=== PATIENT | male | born 1950 | race Caucasian/White ===

== ENCOUNTER 2019-02-25 19:17 | Inpatient (IN) | payer OTHER ==
[~2019-02-25] VITALS: Ht 180.3 cm; Wt 70.3 kg
[2019-02-25 20:57] VITALS: BP_SYST 129
[2019-02-25] MEDS: MORPHINE 2 MG/ML INJ. SYRINGE IVP PRN (21:59)
[2019-02-25] MEDS ORDERED: LEVOFLOXACIN 500 MG/D5W 100 ML IV SCH ×2 (22:45→23:30)
[2019-02-25] MEDS ORDERED: ACETAMINOPHEN 325 MG TABLET PO PRN (22:45)
[2019-02-25] MEDS: D5NS 1,000 ML IV SCH (23:08)
[2019-02-25] MEDS ORDERED: LEVOFLOXACIN 500 MG/D5W 100 ML IV ONE (23:19)
[2019-02-26 00:17] VITALS: BP_SYST 114
[2019-02-26] MEDS: HYDROmorphone 1 MG INJ. 1 MG/ML AMPUL IM PRN (01:16)
[2019-02-26] MEDS: PANTOPRAZOLE SODIUM 40 MG TAB PO SCH (05:53)
[2019-02-26] MEDS: MORPHINE 2 MG/ML INJ. SYRINGE IVP PRN ×6 (05:54→23:34)
[2019-02-26 06:41] LABS: HEMATOCRIT 37.1 % (36-54); LYMPHOCYTES # (AUTO) 0.7 K/uL (1.0-5.5); LYMPHOCYTES % (AUTO) 2.1 % (20.5-51.5); MEAN CORPUSCULAR HEMOGLOBIN 28 pg (27-31); MEAN CORPUSCULAR HGB CONC 32 % (32-36); MEAN CORPUSCULAR VOLUME 88 fL (79.0-98.0); MONOCYTES # (AUTO) 1.4 K/uL (0.0-1.0); MONOCYTES % (AUTO) 4.1 % (1.7-9.3); NEUTROPHILS # (AUTO) 31.9 K/uL (1.8-7.7); PLATELET COUNT (AUTO) 423 K/uL (130-430); RED BLOOD CELL COUNT(AUTO) 4.23 MIL/uL (4.2-6.2)
[2019-02-26 07:06] LABS: ALBUMIN 1.5 g/dL (3.4-4.8); CALCIUM 10.6 mg/dL (8.4-11.0); CREATININE 2.58 mg/dL (0.55-1.30); TOTAL BILIRUBIN 0.4 mg/dL (0.0-1.0)
[2019-02-26 08:00] VITALS: BP_SYST 112
[2019-02-26] MEDS ORDERED: PIPERACILLIN/TAZO 2.25G/DEX-IS 50 ML IV ONE (08:10)
[2019-02-26] MEDS ORDERED: DIATR MEGLU/DIATRIZ SOD 30 ML SOLUTION PO ONE (08:14)
[2019-02-26 08:35] LABS: NEUTROPHILS % (AUTO) 93.8 % (40.0-70.0)
[2019-02-26 11:21] VITALS: BP_SYST 102
[2019-02-26 12:02] VITALS: BP_SYST 108
[2019-02-26] MEDS: PIPERACILLIN/TAZO 2.25G/DEX-IS 50 ML IV SCH ×3 (13:28→23:38)
[2019-02-26] MEDS: D5NS 1,000 ML IV SCH (13:49)
[2019-02-26 15:44] VITALS: BP_SYST 116
[2019-02-26] MEDS: LEVOFLOXACIN 250 MG/D5W 50 ML IV SCH (20:28)
[2019-02-27 00:25] VITALS: BP_SYST 108
[2019-02-27] MEDS: MORPHINE 2 MG/ML INJ. SYRINGE IVP PRN ×4 (03:08→17:23)
[2019-02-27] MEDS: D5NS 1,000 ML IV SCH ×2 (03:11→17:24)
[2019-02-27] MEDS: PIPERACILLIN/TAZO 2.25G/DEX-IS 50 ML IV SCH ×4 (06:07→23:18)
[2019-02-27] MEDS: PANTOPRAZOLE SODIUM 40 MG TAB PO SCH (06:07)
[2019-02-27 06:31] LABS: HEMATOCRIT 31.6 % (36-54); HEMOGLOBIN 10.3 g/dL (14.0-18.0); MEAN CORPUSCULAR HEMOGLOBIN 28 pg (27-31); MEAN CORPUSCULAR HGB CONC 33 % (32-36); MEAN CORPUSCULAR VOLUME 87 fL (79.0-98.0); PLATELET COUNT (AUTO) 382 K/uL (130-430); RED BLOOD CELL COUNT(AUTO) 3.65 MIL/uL (4.2-6.2); RED CELL DISTRIBUTION WIDTH 14.7 % (9.0-15.0)
[2019-02-27 06:45] LABS: CALCIUM 9.7 mg/dL (8.4-11.0); CREATININE 1.75 mg/dL (0.55-1.30); POTASSIUM 3.8 mmol/L (3.5-5.1)
[2019-02-27 06:59] LABS: ALBUMIN 1.4 g/dL (3.4-4.8); TOTAL BILIRUBIN 0.3 mg/dL (0.0-1.0)
[2019-02-27 07:10] LABS: WHITE BLOOD COUNT (AUTO) 30.6 K/uL (4.8-10.8)
[2019-02-27 07:26] LABS: BASOPHILS % (MANUAL) 0 % (0-2); EOSINOPHILS % (MANUAL) 0 % (0-7); LYMPHOCYTES % (MANUAL) 1 % (20-46); MONOCYTES % (MANUAL) 1 % (0-11)
[2019-02-27 07:50] VITALS: BP_SYST 109
[2019-02-27] MEDS: HYDROmorphone 1 MG INJ. 1 MG/ML AMPUL IM PRN ×2 (12:18→21:38)
[2019-02-27 12:43] VITALS: BP_SYST 119
[2019-02-27 16:49] VITALS: BP_SYST 113
[2019-02-27 20:25] VITALS: BP_SYST 114
[2019-02-27] MEDS: LEVOFLOXACIN 250 MG/D5W 50 ML IV SCH (21:38)
[2019-02-28 01:51] VITALS: BP_SYST 119
[2019-02-28] MEDS: D5NS 1,000 ML IV SCH ×2 (04:24→16:33)
[2019-02-28] MEDS: HYDROmorphone 1 MG INJ. 1 MG/ML AMPUL IM PRN ×3 (04:25→10:29)
[2019-02-28] MEDS: PANTOPRAZOLE SODIUM 40 MG TAB PO SCH (07:09)
[2019-02-28] MEDS: PIPERACILLIN/TAZO 2.25G/DEX-IS 50 ML IV SCH ×4 (07:09→23:17)
[2019-02-28 08:25] VITALS: BP_SYST 113
[2019-02-28 09:06] LABS: BASOPHILS % (AUTO) 0.1 % (0.0-2.0); LYMPHOCYTES # (AUTO) 0.6 K/uL (1.0-5.5); MEAN CORPUSCULAR HEMOGLOBIN 28 pg (27-31); MEAN CORPUSCULAR HGB CONC 32 % (32-36); MEAN CORPUSCULAR VOLUME 87 fL (79.0-98.0); MONOCYTES # (AUTO) 1.2 K/uL (0.0-1.0); MONOCYTES % (AUTO) 3.7 % (1.7-9.3); NEUTROPHILS # (AUTO) 31.2 K/uL (1.8-7.7); PLATELET COUNT (AUTO) 409 K/uL (130-430); RED BLOOD CELL COUNT(AUTO) 3.89 MIL/uL (4.2-6.2); RED CELL DISTRIBUTION WIDTH 14.9 % (9.0-15.0)
[2019-02-28 09:10] LABS: WHITE BLOOD COUNT (AUTO) 33.1 K/uL (4.8-10.8)
[2019-02-28 09:27] LABS: CALCIUM 10.6 mg/dL (8.4-11.0); CREATININE 1.61 mg/dL (0.55-1.30); POTASSIUM 3.6 mmol/L (3.5-5.1)
[2019-02-28 09:33] LABS: ALBUMIN 1.4 g/dL (3.4-4.8); TOTAL BILIRUBIN 0.3 mg/dL (0.0-1.0)
[2019-02-28 09:47] LABS: NEUTROPHILS % (AUTO) 94.2 % (40.0-70.0)
[2019-02-28 12:00] VITALS: BP_SYST 121
[2019-02-28] MEDS: FLUCONAZOLE 200 mg/ NS 100 ML IV SCH (13:31)
[2019-02-28] MEDS: MORPHINE 2 MG/ML INJ. SYRINGE IVP PRN ×4 (13:32→23:16)
[2019-02-28 16:03] VITALS: BP_SYST 119
[2019-02-28 20:00] VITALS: BP_SYST 115
[2019-02-28] MEDS: LEVOFLOXACIN 250 MG/D5W 50 ML IV SCH (20:11)
[2019-03-01 00:31] VITALS: BP_SYST 141
[2019-03-01] MEDS: MORPHINE 2 MG/ML INJ. SYRINGE IVP PRN ×2 (02:17→06:16)
[2019-03-01] MEDS: PIPERACILLIN/TAZO 2.25G/DEX-IS 50 ML IV SCH ×4 (05:20→23:06)
[2019-03-01] MEDS: PANTOPRAZOLE SODIUM 40 MG TAB PO SCH (06:17)
[2019-03-01 06:31] LABS: BASOPHILS # (AUTO) 0.4 K/uL (0.0-0.2); BASOPHILS % (AUTO) 1.2 % (0.0-2.0); EOSINOPHILS # (AUTO) 0.1 K/uL (0.0-0.4); EOSINOPHILS % (AUTO) 0.2 % (0.0-4.0); HEMATOCRIT 35.7 % (36-54); HEMOGLOBIN 11.6 g/dL (14.0-18.0); LYMPHOCYTES # (AUTO) 0.8 K/uL (1.0-5.5); LYMPHOCYTES % (AUTO) 2.4 % (20.5-51.5); MEAN CORPUSCULAR HEMOGLOBIN 28 pg (27-31); MEAN CORPUSCULAR HGB CONC 33 % (32-36); MEAN CORPUSCULAR VOLUME 87 fL (79.0-98.0); MONOCYTES # (AUTO) 1.4 K/uL (0.0-1.0); MONOCYTES % (AUTO) 4.5 % (1.7-9.3); NEUTROPHILS # (AUTO) 29.4 K/uL (1.8-7.7); PLATELET COUNT (AUTO) 417 K/uL (130-430); RED BLOOD CELL COUNT(AUTO) 4.12 MIL/uL (4.2-6.2); RED CELL DISTRIBUTION WIDTH 14.4 % (9.0-15.0)
[2019-03-01 06:45] LABS: ALBUMIN 1.5 g/dL (3.4-4.8); CALCIUM 10.9 mg/dL (8.4-11.0); CREATININE 1.41 mg/dL (0.55-1.30); POTASSIUM 3.7 mmol/L (3.5-5.1); TOTAL BILIRUBIN 0.5 mg/dL (0.0-1.0)
[2019-03-01 07:39] LABS: NEUTROPHILS % (AUTO) 91.7 % (40.0-70.0)
[2019-03-01 07:42] VITALS: BP_SYST 129
[2019-03-01 11:14] VITALS: BP_SYST 131
[2019-03-01] MEDS: D5NS 1,000 ML IV SCH ×2 (11:20→20:28)
[2019-03-01] MEDS: FLUCONAZOLE 200 mg/ NS 100 ML IV SCH (12:24)
[2019-03-01] MEDS: HYDROmorphone 1 MG INJ. 1 MG/ML AMPUL IM PRN ×2 (14:35→20:27)
[2019-03-01 15:43] VITALS: BP_SYST 137
[2019-03-01 20:00] VITALS: BP_SYST 132
[2019-03-02 00:30] VITALS: BP_SYST 133
[2019-03-02] MEDS: HYDROmorphone 1 MG INJ. 1 MG/ML AMPUL IM PRN ×2 (02:26→08:45)
[2019-03-02] MEDS: PANTOPRAZOLE SODIUM 40 MG TAB PO SCH (06:11)
[2019-03-02] MEDS: PIPERACILLIN/TAZO 2.25G/DEX-IS 50 ML IV SCH ×3 (06:11→17:36)
[2019-03-02 06:53] LABS: BASOPHILS # (AUTO) 0.1 K/uL (0.0-0.2); BASOPHILS % (AUTO) 0.4 % (0.0-2.0); EOSINOPHILS # (AUTO) 0.1 K/uL (0.0-0.4); EOSINOPHILS % (AUTO) 0.5 % (0.0-4.0); HEMATOCRIT 36.3 % (36-54); HEMOGLOBIN 11.5 g/dL (14.0-18.0); LYMPHOCYTES # (AUTO) 1.1 K/uL (1.0-5.5); LYMPHOCYTES % (AUTO) 4.1 % (20.5-51.5); MEAN CORPUSCULAR HEMOGLOBIN 28 pg (27-31); MEAN CORPUSCULAR HGB CONC 32 % (32-36); MEAN CORPUSCULAR VOLUME 87 fL (79.0-98.0); MONOCYTES # (AUTO) 1.5 K/uL (0.0-1.0); MONOCYTES % (AUTO) 5.5 % (1.7-9.3); NEUTROPHILS # (AUTO) 24.9 K/uL (1.8-7.7); NEUTROPHILS % (AUTO) 89.5 % (40.0-70.0); PLATELET COUNT (AUTO) 496 K/uL (130-430); RED BLOOD CELL COUNT(AUTO) 4.17 MIL/uL (4.2-6.2); RED CELL DISTRIBUTION WIDTH 14.8 % (9.0-15.0); WHITE BLOOD COUNT (AUTO) 27.8 K/uL (4.8-10.8)
[2019-03-02 07:33] LABS: CREATININE 1.38 mg/dL (0.55-1.30)
[2019-03-02 07:41] LABS: ALBUMIN 1.4 g/dL (3.4-4.8); TOTAL BILIRUBIN 0.3 mg/dL (0.0-1.0)
[2019-03-02 08:00] VITALS: BP_SYST 121
[2019-03-02 11:25] VITALS: BP_SYST 121
[2019-03-02] MEDS: D5NS 1,000 ML IV SCH ×2 (11:54→22:40)
[2019-03-02] MEDS: FLUCONAZOLE 200 mg/ NS 100 ML IV SCH (12:42)
[2019-03-02] MEDS: HYDROmorphone 1 MG INJ. 1 MG/ML AMPUL IVP PRN ×2 (15:03→21:23)
[2019-03-02 15:34] VITALS: BP_SYST 158
[2019-03-02 19:00] VITALS: BP_SYST 152
[2019-03-02 20:00] VITALS: BP_SYST 152
[2019-03-02] MEDS: MORPHINE 2 MG/ML INJ. SYRINGE IVP PRN (23:27)
[2019-03-03] MEDS: PIPERACILLIN/TAZO 2.25G/DEX-IS 50 ML IV SCH ×2 (00:10→05:56)
[2019-03-03] MEDS: D5NS 1,000 ML IV SCH (00:11)
[2019-03-03 01:11] VITALS: BP_SYST 142
[2019-03-03] MEDS: HYDROmorphone 1 MG INJ. 1 MG/ML AMPUL IVP PRN ×5 (03:09→23:14)
[2019-03-03] MEDS: PANTOPRAZOLE SODIUM 40 MG TAB PO SCH (05:56)
[2019-03-03 08:06] VITALS: BP_SYST 134
[2019-03-03 11:26] VITALS: BP_SYST 137
[2019-03-03] MEDS: FLUCONAZOLE 200 mg/ NS 100 ML IV SCH (13:14)
[2019-03-03] MEDS ORDERED: IOHEXOL 100 ML IV ONE (14:02)
[2019-03-03] MEDS ORDERED: DIATR MEGLU/DIATRIZ SOD 30 ML SOLUTION PO ONE (14:02)
[2019-03-03] MEDS: MEROPENEM 500 MG in NS 50 ML IV SCH ×2 (14:22→23:11)
[2019-03-03 16:01] VITALS: BP_SYST 141
[2019-03-03 19:00] VITALS: BP_SYST 156
[2019-03-03 20:00] VITALS: BP_SYST 156
[2019-03-04 00:22] VITALS: BP_SYST 138
[2019-03-04] MEDS: D5NS 1,000 ML IV SCH ×2 (01:20→09:36)
[2019-03-04] MEDS: HYDROmorphone 1 MG INJ. 1 MG/ML AMPUL IVP PRN ×3 (03:23→15:36)
[2019-03-04] MEDS: PANTOPRAZOLE SODIUM 40 MG TAB PO SCH (06:13)
[2019-03-04] MEDS: MEROPENEM 500 MG in NS 50 ML IV SCH ×2 (06:13→13:49)
[2019-03-04 07:01] LABS: BASOPHILS # (AUTO) 0.1 K/uL (0.0-0.2); BASOPHILS % (AUTO) 0.2 % (0.0-2.0); EOSINOPHILS # (AUTO) 0.3 K/uL (0.0-0.4); EOSINOPHILS % (AUTO) 1.1 % (0.0-4.0); HEMATOCRIT 37.2 % (36-54); HEMOGLOBIN 12.3 g/dL (14.0-18.0); LYMPHOCYTES # (AUTO) 1.3 K/uL (1.0-5.5); LYMPHOCYTES % (AUTO) 4.4 % (20.5-51.5); MEAN CORPUSCULAR HEMOGLOBIN 29 pg (27-31); MEAN CORPUSCULAR HGB CONC 33 % (32-36); MEAN CORPUSCULAR VOLUME 86 fL (79.0-98.0); MONOCYTES # (AUTO) 1.4 K/uL (0.0-1.0); MONOCYTES % (AUTO) 4.8 % (1.7-9.3); NEUTROPHILS # (AUTO) 25.9 K/uL (1.8-7.7); NEUTROPHILS % (AUTO) 89.5 % (40.0-70.0); PLATELET COUNT (AUTO) 567 K/uL (130-430); RED BLOOD CELL COUNT(AUTO) 4.32 MIL/uL (4.2-6.2); RED CELL DISTRIBUTION WIDTH 14.7 % (9.0-15.0)
[2019-03-04 07:43] LABS: ALBUMIN 1.4 g/dL (3.4-4.8); CREATININE 1.24 mg/dL (0.55-1.30); POTASSIUM 3.6 mmol/L (3.5-5.1); TOTAL BILIRUBIN 0.4 mg/dL (0.0-1.0)
[2019-03-04 08:11] VITALS: BP_SYST 127
[2019-03-04] MEDS: FLUCONAZOLE 200 mg/ NS 100 ML IV SCH (12:23)
[2019-03-04 12:31] VITALS: BP_SYST 115
[2019-03-04 14:48] VITALS: BP_SYST 132
[2019-03-04] MEDS ORDERED: ACET-2165 PO (16:02)
[2019-03-04] MEDS ORDERED: FLUC200T IVPB ×2 (16:02→16:04)
[2019-03-04] MEDS ORDERED: MERO500V IVPB (16:05)
[2019-03-04] MEDS ORDERED: PRO40 PO (16:06)
[2019-03-04 16:17] VITALS: BP_SYST 132
== END 2019-03-04 19:20 | DRG 871 ==
LOC: SMU 20:04
PROVIDERS: ADMIT Internal Medicine Hospice and Palliative Medicine; ATTEND Internal Medicine Hospice and Palliative Medicine
DX: A41.9 Sepsis, unspecified organism (principal); E43 Unspecified severe protein-calorie malnutrition; N17.0 Acute kidney failure with tubular necrosis; N13.6 Pyonephrosis; I10 Essential (primary) hypertension; F12.90 Cannabis use, unspecified, uncomplicated; R33.9 Retention of urine, unspecified; B96.20 Unspecified Escherichia coli [E. coli] as the cause of diseases classified elsewhere; F17.210 Nicotine dependence, cigarettes, uncomplicated; R63.4 Abnormal weight loss; K59.00 Constipation, unspecified; N32.9 Bladder disorder, unspecified; Z85.72 Personal history of non-Hodgkin lymphomas; Z68.21 Body mass index [BMI] 21.0-21.9, adult
CPT/HCPCS: 36415; 71045; 76770; 80053; 85007; 85025; 85027; 87040-TC; 87086; 87186-TC; J1170; J1450; J1956; J2185; J2270; J2543; J7042; Q9964; Q9967